=== PATIENT | female | born 1960 | race Caucasian/White ===

== ENCOUNTER → 2017-03-04 | Outpatient (CLI) | payer OTHER | LOC: FIMAGING 15:07 | PROVIDERS: ATTEND Surgery | DX: Z12.31 Encounter for screening mammogram for malignant neoplasm of breast (principal) | CPT/HCPCS: G0202 ==

== ENCOUNTER → 2018-03-21 | Outpatient (CLI) | payer OTHER | LOC: FIMAGING 12:10 | PROVIDERS: ATTEND Surgery | DX: Z12.31 Encounter for screening mammogram for malignant neoplasm of breast (principal); Z85.3 Personal history of malignant neoplasm of breast ==

== ENCOUNTER → 2018-04-05 | Outpatient (CLI) | payer OTHER | LOC: FIMAGING 09:19 | PROVIDERS: ATTEND Surgery | DX: R59.1 Generalized enlarged lymph nodes (principal) ==

== ENCOUNTER → 2018-04-20 | Day surgery (SDC) | payer OTHER ==
[~2018-04-20] MED LIST: BUPIVACAINE 0.5% 30 ML SDV ONE; LIDOCAINE 1% 300 MG/30 ML SDV ONE; THROMBIN (BOVINE) 5,000 UNIT VIAL TP ONE
== END | disposition home or self-care (01) ==
LOC: FIMAGING 07:12
PROVIDERS: ATTEND Surgery
DX: D05.01 Lobular carcinoma in situ of right breast (principal); D36.0 Benign neoplasm of lymph nodes; L76.82 Other postprocedural complications of skin and subcutaneous tissue; Z85.3 Personal history of malignant neoplasm of breast

== ENCOUNTER → 2018-06-02 | Outpatient (CLI) | payer OTHER ==
[~2018-06-02] MED LIST changes: -BUPIVACAINE 0.5% 30 ML SDV ONE; +GADOBUTROL 10 ML VIAL IVP ONE; -LIDOCAINE 1% 300 MG/30 ML SDV ONE; -THROMBIN (BOVINE) 5,000 UNIT VIAL TP ONE
== END ==
LOC: FIMAGING 11:43
PROVIDERS: ATTEND Surgery
DX: C50.811 Malignant neoplasm of overlapping sites of right female breast (principal); R59.0 Localized enlarged lymph nodes; L76.32 Postprocedural hematoma of skin and subcutaneous tissue following other procedure
CPT/HCPCS: A9585; C8908

== ENCOUNTER 2018-08-05 08:09 | Observation (INO) | payer OTHER ==
[2018-08-05] MEDS ORDERED: LR 1,000 ML IV ONE (08:43)
--- NOTE | 2018-08-05 09:05 | PDHPUP ---
History & Physical Update H&P update statement: This history and physical update is based on an assessment of the patient which was completed after admission or registration (within 24 hours), but prior to the surgery/procedure. H&P update: H&P reviewed & patient examined, no change in patient's condition since H&P completed
--- NOTE | 2018-08-05 09:07 | POSTOPPROG ---
Post Op Note Date of Operation: 08/05/18 Surgeon: Carlos Casanova Roofer Applicator: Anne Maynard PA-C Anesthesia: GET(General Endotracheal) Pre-op Diagnosis: Right recurrent breast cancer Post-op Diagnosis: same Procedure: Bilateral mastectomy with reconstruction, right axillary SLNB Inf/Abcess present in the surg proc area at time of surgery?: No EBL: 50-100 Drains: Jcarlos Cortes (x2) Specimen(s): right breast, left breast,
[2018-08-05] MEDS ORDERED: BACITRACIN ZINC 0.5 OZ OINTTUBE TP ONE (09:44)
[2018-08-05] MEDS ORDERED: BACITRACIN 50,000 UNITS/10 ML SYR IRR ONE (09:45)
[2018-08-05] MEDS ORDERED: ceFAZolin 1 GM/5 ML SYR ONE (09:45)
[2018-08-05] MEDS ORDERED: GENTAMICIN SULFATE 80 MG/2 ML VIAL ONE (09:45)
[2018-08-05] MEDS ORDERED: BUPIVACAINE 0.25% 30 ML SDV ONE ×2 (09:45→14:08)
[2018-08-05] MEDS ORDERED: ceFAZolin 2 GM/DEXTROSE 100 ML IV ONE (12:33)
[2018-08-05] MEDS ORDERED: MIDAZOLAM 2 MG/2 ML VIAL IVP ONE (12:41)
--- NOTE | 2018-08-05 12:42 | PDANEPAE ---
ANE Past Medical History - Cardiovascular History Hx Hypertension: Yes Hx Arrhythmias: No Hx Chest Pain: No Hx Coronary Artery / Peripheral Vascular Disease: No Hx CHF / Valvular Disease: No Hx Palpitations: No Cardiovascular History Comment: "White coat syndrome", BP controlled otherwise. - Pulmonary History Hx COPD: No Hx Asthma/Reactive Airway Disease: No Hx Recent Upper Respiratory Infection: No Hx Oxygen in Use at Home: No Hx Sleep Apnea: No Sleep Apnea Screening Result - Last Documented: Negative - Neurologic History Hx Cerebrovascular Accident: No Hx Seizures: No Hx Dementia: No - Endocrine History Hx Diabetes: No - Renal History Hx Renal Disorders: No - Liver History Hx Hepatic Disorders: No - Neurological & Psychiatric Hx Hx Neurological and Psychiatric Disorders: No - Cancer History Hx Cancer: Yes Cancer History Comment: R breast CA - Congenital Disorder History Hx Congenital Disorders: No - GI History Hx Gastrointestinal Disorders: No - Other Health History Other Health History: None. - Chronic Pain History Chronic Pain: No - Surgical History Prior Surgeries: Cholecystectomy 2017. L breast bx 2016. D&C 2016. R breast lumpectomy 2013. R sentinel node bx 2013. C/S 1999 ANE Review of Systems Review of Systems: - Exercise capacity METS (RN): 4 METS ANE Patient History - Allergies Allergies/Adverse Reactions: amoxicillin [From Augmentin] Allergy (Intermediate, Verified 08/01/18 12:57) Rash chlorhexidine Allergy (Intermediate, Verified 08/01/18 17:18) Rash clavulanic acid [From Augmentin] Allergy (Intermediate, Verified 08/01/18 12:57) Rash fluconazole Allergy (Verified 08/01/18 12:57) Rash - Home Medications Home Medications: Carboxymethylcellulose 1% [Refresh Celluvisc (*)] 1 drop EACHEYE DAILY PRN 07/26 [Last Taken 08/04/18] Ibuprofen [Motrin (*)] 200 mg PO DAILY PRN 07/26/18 [Last Taken 08/01/18] - NPO status NPO Since - Liquids (Date): 08/05/18 NPO Since - Liquids (Time): 01:10 NPO Since - Solids (Date): 08/04/18 NPO Since - Solids (Time): 23:30 - Smoking Hx Smoking Status: Never smoked - Family Anes Hx Family Hx Anesthesia Complications: None. ANE Labs/Vital Signs - Vital Signs Blood Pressure: 157/100 Heart Rate: 72 Respiratory Rate: 20 O2 Sat (%): 95 Height: 162.56 cm Weight: 74.843 kg ANE Physical Exam - Airway Neck exam: FROM Mallampati Score: Class 2 Mouth exam: normal dental/mouth exam - Pulmonary Pulmonary: no respiratory distress - Cardiovascular Cardiovascular: regular rate and rhythym - ASA Status ASA Status: II ANE Anesthesia Plan Anesthesia Plan: general endotracheal anesthesia
[2018-08-05] MEDS ORDERED: fentaNYL 100 MCG/2 ML INJ ONE ×3 (12:46→14:43)
[2018-08-05] MEDS ORDERED: ONDANSETRON 4 MG/2 ML VIAL ONE (12:46)
[2018-08-05] MEDS ORDERED: PROPOFOL 200 MG/20 ML VIAL ONE (12:46)
[2018-08-05] MEDS ORDERED: LIDOCAINE 2% 100 MG/5 ML SYR ONE (12:46)
[2018-08-05] MEDS ORDERED: DEXAMETHASONE 4 MG/ML VIAL ONE (12:46)
[2018-08-05] MEDS ORDERED: ROCURONIUM 50 MG/5 ML VIAL ONE (12:46)
[2018-08-05] MEDS ORDERED: hydrALAZINE 20 MG/ML VIAL ONE (13:54)
[2018-08-05] MEDS ORDERED: GLYCOPYRROLATE 0.2 MG/1 ML VIAL ONE (14:19)
[2018-08-05] MEDS ORDERED: NEOSTIGMINE METHYLSULFATE 10 MG/10 ML MDV ONE (14:19)
[2018-08-05] MEDS ORDERED: NALOXONE HCL 0.4 MG/ML INJ IVP PRN (14:38)
[2018-08-05] MEDS ORDERED: ALBUTEROL 3 ML DEYVIAL IH PRN (14:38)
[2018-08-05] MEDS ORDERED: ONDANSETRON 4 MG/2 ML VIAL IVP PRN ×2 (14:38→15:05)
--- NOTE | 2018-08-05 14:39 | POSTANESTH ---
Post Anesthetic Evaluation Cardiovascular Status: Normal, Stable, Similar to Pre-Op Cond Respiratory Status: Similar to Pre-op Cond. Level of Consciousness/Mental Status: Can Participate in Eval, Mildly Sleepy, Arousable Pain Control: Adequate, Prn Tx Ordered Nausea/Vomiting Control: Adequate, Prn Tx Ordered Complications Possibly Related to Anesthesia: None Noted
[2018-08-05] MEDS: fentaNYL 100 MCG/2 ML INJ IVP PRN ×2 (14:43→15:08)
[2018-08-05] MEDS ORDERED: HYDROCODONE/APAP 5/325 TAB PO PRN (15:05)
[2018-08-05] MEDS ORDERED: TEMAZEPAM 15 MG CAP PO PRN (15:05)
[2018-08-05] MEDS ORDERED: ACETAMINOPHEN 325 MG TAB PO PRN (15:05)
[2018-08-05] MEDS ORDERED: HYDROmorphONE/DILAUDID 1 MG/ML INJ IVP PRN (15:05)
[2018-08-05] MEDS ORDERED: CARBOXYMETHYLCELLULOSE 1% 0.4 ML DROPERETTE EACHEYE PRN (15:07)
--- NOTE | 2018-08-05 15:15 | GOP ---
[f rep st] OPERATIVE REPORT DATE OF OPERATION: 08/05/2018 SURGEON: Rufus Santiago Jr., MD SIEBEL SOLUTION ARCHITECT: Olayinka Gibbons CST, by surgeon request (skilled surgical services director was necessary due t o the technical complexity of the case and desire to minimize patient anesthesia time). ANESTHESIA: General inhalational anesthetic. ANESTHESIOLOGIST: Dr. Charbel Haines. PREOPERATIVE DIAGNOSIS: Right breast cancer. POSTOPERATIVE DIAGNOSIS: Right breast cancer. PROCEDURE PERFORMED: Immediate bilateral breast reconstruction utilizing prepectoral AlloDerm wrappe d tissue expanders. FINDINGS: ESTIMATED BLOOD LOSS: During reconstruction was 10 cc. INDICATIONS: Mira is a 57-year-old white female referred from Dr. Carlos Casanova after being diagnosed with a diffuse right breast cancer. She elected to undergo bilateral skin-sparing mastectomies and was seen in the operating room for that purpose. DESCRIPTION OF PROCEDURE: After the risks and benefits of procedure were explained to the patient hi ghlighting bleeding, infection, implant or tissue revenue enforcement collection agent malposition, need for premature tissue exp faith removal, asymmetry, damage to vessels or nerves, wound dehiscence, poor cosmetic outcome, need for additional procedures, formal operative consent was obtained. She was seen in the operating room by Dr. Casanova, where uncomplicated bilateral mastectomies with a right sentinel lymph node biopsy were performed. Meticulous hemostasis was assured in each pocket. During the mastectomy, tissue revenue enforcement collection agent s were prepared as follows: Allergan 133+ FX 650 cc devices were thoroughly tested, filled with 650 cc of air, and wrapped with AlloDerm 16 x 20 cm acellular dermis graft sheets. The AlloDerm was trip le rinsed in normal saline, soaked in triple antibiotic saline, and used as a complete wrap over the tissue expanders. The pockets were irrigated with triple antibiotic saline. The tissue expanders we re sewn down to the chest wall in the correct anatomic position and deflated to 300 cc. She had 15 c c of 0.25% plain Marcaine instilled into each drain. She had 15 round drains placed bilaterally. Sh e had her mastectomy incisions closed using everting deep dermal 3-0 Monocryl suture and further ever tung using surgical vladislav. Excellent vascularity of the flaps was appreciated with minimal tension. She had bacitracin, Xeroform, 4x4s applied and was with a compressive bra. She was extubated in th e OR, taken to recovery room awake and in stable condition. TISSUE EXPANDERS: Allergan Natrelle 133+ FX 650 cc devices filled to 300 cc with air. DRAINS: Two JERMAN drains placed. COMPLICATIONS: None. /[id number]/MODL
[2018-08-05] MEDS: KETOROLAC 15 MG/1 ML SDV IVP SCH ×2 (18:45→23:44)
--- NOTE | 2018-08-05 19:05 | GOP ---
[f rep st] OPERATIVE REPORT DATE OF OPERATION: 08/05/2018 SURGEON: Carlos Casanova MD PLASTIC SURGEON: Rufus Santiago MD, baling machine operator: Anne Maynard PA-C ANESTHESIA: General. ANESTHESIOLOGIST: Herb Haines MD PREOPERATIVE DIAGNOSIS: Recurrent right breast carcinoma. POSTOPERATIVE DIAGNOSIS: Recurrent right breast carcinoma. PROCEDURE PERFORMED: 1. Bilateral simple mastectomy with right axillary sentinel node sampling. 2. Immediate tissue contract clerk reconstruction. FINDINGS: See below. INDICATIONS: 57-year-old female with a prior history of right breast carcinoma. She has developed a large central recurrence. She has opted to undergo bilateral simple mastectomy with tissue contract clerk reconstructions at this time in anticipation for future NOREEN reconstructions. Surgical risks and benefits were explained to include bleeding, infection, tumor recurrence, need for additional postoperative adjuvant therapy, inability to find sentinel node having undergone a prior sentinel node sampling, arm edema, nerve injury, as well as indications for completion axillary lymph node dissection. All questions were answered. She desires to proceed. A surgical lead is standard and necessary and customary for the safe performance of this procedure. DESCRIPTION OF PROCEDURE: General anesthesia was induced upon returning for lymphoscintigraphy. Bilateral breasts were elliptically incised using electrocautery. Skin flaps were created up to the clavicle, sternum, inframammary fold, as well as latissimus dorsi muscle laterally. The breast was peeled from medial to lateral and taken high up into the axillary tails of [facility]. The specimens were tagged for orientation and sent for permanent specimen processing. Sitting within the upper outer aspect of the mastectomy specimen were 2 hot axillary lymph nodes measuring 15,000 units and 4,000 units on the gamma counter. These were small and firm. They were dissected away from the surrounding fibrofatty breast tissue and sent as permanent specimens. Further exploration of the axilla showed no suspicious palpable adenopathy. Satisfactory hemostasis was assured throughout bilateral jeffrey breast cavities. The skin envelopes appeared pink and healthy. Care of the case was turned to Dr. Santiago for implant placement and wound closure. /[id number]/MODL MTDD
[2018-08-06] MEDS: KETOROLAC 15 MG/1 ML SDV IVP SCH ×2 (06:05→12:10)
--- NOTE | 2018-08-06 08:17 | GDS ---
[f rep st] DISCHARGE SUMMARY REASON FOR ADMISSION: Recurrent right breast carcinoma. HOSPITAL COURSE: 57-year-old female with recurrent right breast carcinoma. She underwent an uncompl icated bilateral mastectomy with right axillary sentinel node sampling and immediate tissue damaged freight inspector reconstruction. She had a benign postoperative course. She was discharged home the following day in good condition, tolerating regular diet, with adequate pain control with oral analgesics. She will be seen in followup with Wilver Lora, and Pamela as scheduled. She was to resume all pre-hospit al medications. Full activity instructions were explained prior to leaving. /[id number]/MODL
--- NOTE | 2018-08-06 09:38 | ASMTDCNOTE ---
Case Management Discharge Discharge Order Complete? Answers: Yes Patient to Obtain Answers: via Family Medications Transportation Arranged Answers: Family/Friends Family Notified Answers: Yes Notes: at Bedside Discharge Comments Notes: Pt is a 57 yo F underwent bilateral Mastectomy with Dr. Casanova yesterday. Pt reports she already has follow-up scheduled and reports no CM needs at this time. Her is at bedside and is prepared to assist in follow-up needs. No other CM needs identified. Date Signed: 08/06/2018 09:37 AM Electronically Signed By:ELISE Colon
--- NOTE | 2018-08-06 09:39 | ASMTLACE ---
LACE Length of stay for Answers: 1 day current admission Acuity / Level of Answers: No Care: Did the patient have an inpatient admission? Comorbidities - select Answers: Any tumor (including all that apply lymphoma or leukemia) Score: 3 Date Signed: 08/06/2018 09:38 AM Electronically Signed By:ELISE Colon
--- NOTE | 2018-08-06 09:54 | ASDISCHSUM ---
Discharge Information Plan Status:Home with No Needs Medically Cleared to Leave:08/06/2018 Discharge Date:08/06/2018 CM D/C Disposition:Home, Routine, Self-Care ADT D/C Disposition:Home, Routine, Self-Care Projected Discharge Date:08/06/2018 Transportation at D/C:Family Discharge Delay Reason: Follow-Up Date:08/06/2018 Discharge Slot: Final Diagnosis: Placement Information Patient Contact Information Contact Name:JAMAAL Relationship: Address:[address] Work Phone: City:[place] Alternate Phone: [facility]/Zip Code:[place] [address] Email: Financial Information Financial Class:HMO and PPO Plans Primary Plan Desc:SUHAIL Primary Plan Number:[id number] Secondary Plan Desc: Secondary Plan Number: Assessment Information Case Management Discharge Plan Note Case Management Discharge Discharge Order Complete? Answers: Yes Patient to Obtain Answers: via Family Medications Transportation Arranged Answers: Family/Friends Family Notified Answers: Yes Notes: at Bedside Discharge Comments Notes: Pt is a 57 yo F underwent bilateral Mastectomy with Dr. Casanova yesterday. Pt reports she already has follow-up scheduled and reports no CM needs at this time. Her is at bedside and is prepared to assist in follow-up needs. No other CM needs identified. Date Signed: 08/06/2018 09:37 AM Electronically Signed By:ELISE Colon LACE LACE Length of stay for Answers: 1 day current admission Acuity / Level of Answers: No Care: Did the patient have an inpatient admission? Comorbidities - select Answers: Any tumor (including all that apply lymphoma or leukemia) Score: 3 Date Signed: 08/06/2018 09:38 AM Electronically Signed By:ELISE Colon Intervention Information
[2018-08-06 12:22] VITALS: BP 106/60
== END 2018-08-06 13:10 | disposition home or self-care (01) ==
LOC: F1N 08:09
PROVIDERS: ADMIT Surgery; ATTEND Surgery
PROC: 07B50ZX Excision of Right Axillary Lymphatic, Open Approach, Diagnostic (ICD-10-PCS; principal; 2018-08-05 11:30)
PROC: 0HTT0ZZ Resection of Right Breast, Open Approach (ICD-10-PCS; principal; 2018-08-05 11:30)
PROC: 0HTU0ZZ Resection of Left Breast, Open Approach (ICD-10-PCS; principal; 2018-08-05 11:30)
PROC: 0H0T0JZ Alteration of Right Breast with Synthetic Substitute, Open Approach (ICD-10-PCS; principal; 2018-08-05 11:30)
PROC: 0H0U0JZ Alteration of Left Breast with Synthetic Substitute, Open Approach (ICD-10-PCS; principal; 2018-08-05 11:30)
PROC: 07B60ZX Excision of Left Axillary Lymphatic, Open Approach, Diagnostic (ICD-10-PCS; principal; 2018-08-05 11:30)
DX: D05.01 Lobular carcinoma in situ of right breast (principal); Z40.01 Encounter for prophylactic removal of breast; Z85.3 Personal history of malignant neoplasm of breast; I10 Essential (primary) hypertension
CPT/HCPCS: J0360; J0690; J1100; J1580; J1885; J2001; J2405; J2704; J3010; Q4116

== ENCOUNTER → 2018-08-05 | Outpatient (CLI) | payer OTHER ==
[~2018-08-05] MED LIST changes: -GADOBUTROL 10 ML VIAL IVP ONE; +MIDAZOLAM 2 MG/2 ML VIAL ONE
== END ==
LOC: FIMAGING 08:06
PROVIDERS: ATTEND Surgery
DX: D05.01 Lobular carcinoma in situ of right breast (principal); D05.02 Lobular carcinoma in situ of left breast
CPT/HCPCS: A9520; J2250